=== PATIENT | male | born 1940 ===

== ENCOUNTER 2024-01-11 12:50 | Outpatient (POV) | payer MEDICARE, SELFPAY ==
--- NOTE | 2024-01-11 13:06 | EXP.PAIN.OV ---
HPI Data of Consult Patient: new to practice Consult date: 01/11/24 Requesting Physician: Sherry James APRN Consult Narrative Reason for consult: Back pain History of present illness: Mr. Roblero is a 83 year old male presents today as a new patient. He is a referral from the [place] office location. Today he rates his pain a 6 out of 10. Patient states he continues to have chronic pain in his low back as well as neuropathy in his feet. Patient states this has been going on for years and progressively worsening. Patient does have a history of stage IV prostate cancer. Patient did have treatment with [employer] and states he does have 2 additional treatments still left. Patient did previously have lumbar medial branch blocks and RFA with minimal relief. He was tried on Compounded cream however states he really did not notice significant improvement. Patient is also having to go through a lot with their adult daughter who is a nurse and had sudden illness requiring brain surgery. Patient is currently being prescribed oxycodone 15 mg 3 times a day from our office and gabapentin from an outside provider. He does use a cane to help with ambulation. His Bebeto has been reviewed and is appropriate. CC: Sherry James APRN [facility] Disclaimer: The information contained in this section may have been updated after the patient was seen, as this information can be updated by other users. Medical History (Updated 01/11/24 @ 13:36 by Sherry James APRN) GERD (gastroesophageal reflux disease) GERD (gastroesophageal reflux disease) Hypothyroid Depression Lumbar degenerative disc disease Lumbar spinal stenosis Dementia Diabetes BPH (benign prostatic hyperplasia) HLD (hyperlipidemia) HTN (hypertension) Family History (Updated 01/11/24 @ 13:20 by Betsy Nieves RN) Other No significant family history Social History Smoking Status: Unknown if ever smoked alcohol intake: never current occupational status: retired Travel in the last 8 weeks: None Review of Systems Review of Systems Review of systems:: pertinent systems reviewed and negative unless documented below Review of systems (narrative): Review of Systems: General: No recent weight changes, no fever, no sleep disturbances Respiratory: No cough, no shortness of air, no recurring pulmonary infections Cardiovascular/peripheral vascular: No chest pain, no palpitations, no edema, no shortness of breath Gastrointestinal: No new onset incontinence, normal bowel movements reported Genitourinary: No new onset incontinence Musculoskeletal: Low back pain Psychiatric: [Normal mood/affect] Neurological: [Denies weakness in extremities], [denies balance issues] Meds Home Medications and Allergies Home Medications Medication Instructions Recorded Confirmed Type amlodipine 10 mg tablet 10 mg PO DAILY 01/11/24 01/11/24 History donepezil 5 mg disintegrating 5 mg PO DAILY 01/11/24 01/11/24 History tablet escitalopram oxalate 10 mg tablet 10 mg PO DAILY 01/11/24 01/11/24 History gabapentin 600 mg tablet 600 mg PO TID 01/11/24 01/11/24 History glyburide 5 mg tablet 5 mg PO DAILY 01/11/24 01/11/24 History hydrochlorothiazide 25 mg tablet 25 mg PO DAILY 01/11/24 01/11/24 History insulin glargine 100 unit/mL 40 unit SQ HS 01/11/24 01/11/24 History subcutaneous solution (Lantus U-100 Insulin) levothyroxine 100 mcg tablet 100 mcg PO DAILY 01/11/24 01/11/24 History lisinopril 40 mg tablet 40 mg PO DAILY 01/11/24 01/11/24 History memantine 10 mg tablet 10 mg PO DAILY 01/11/24 01/11/24 History metoprolol tartrate 25 mg tablet 25 mg PO DAILY 01/11/24 01/11/24 History oxycodone 15 mg tablet 15 mg PO TID 01/11/24 01/11/24 History pantoprazole 40 mg tablet,delayed 40 mg PO DAILY 01/11/24 01/11/24 History release simvastatin 40 mg tablet 40 mg PO DAILY 01/11/24 01/11/24 History tamsulosin 0.4 mg capsule 0.4 mg PO DAILY 01/11/24 01/11/24 History New Prescriptions to Start Prescriptions: Allergies Allergy/AdvReac Type Severity Reaction Status Date / Time ciprofloxacin [From Cipro] AdvReac Rash Verified 01/11/24 13:12 latex AdvReac Rash Verified 01/11/24 13:12 Objective Narrative: Physical Exam: General: Alert and oriented x3, no acute distress, pleasant and cooperative Lungs: Respirations even and unlabored, symmetrical chest expansion Eyes: PERRL Musculoskeletal: Flexion and extension of lumbar [spine] somewhat guarded secondary to pain, [antalgic gait noted] Neurological: Speech clear, no gross sensory deficit Assessment and Plan *Assessment and plan (1) Chronic pain syndrome: Status: Acute Category: Medical Code(s): G89.4 - Chronic pain syndrome (2) Low back pain: Status: Acute Qualifiers: Chronicity: chronic Back pain laterality: midline Sciatica presence: without sciatica Qualified Code(s): M54.50 - Low back pain, unspecified; G89.29 - Other chronic pain Category: Medical Code(s): M54.50 - Low back pain, unspecified Plan Patient continues to experience significant pain in his low back with occasional pain into his groin and testicle pain. We will refill the patient's oxycodone 15 mg 3 times a day and provide a 1 month supply of this medication. Patient will return to clinic in 1 month via telehealth visit due to his ongoing health issues with prostate cancer and daughters health. Risks and benefits of the medication have been explained in detail to the patient. The patient does understand the risk of dependence on the medication when given over a prolonged period. Patient has been advised of risks of oversedation with the prescribed medication. Narcan has been offered to the paitent in the event of oversedation. Patient has been advised that a family member should also be educated regarding administration of Narcan. The patient has been advised to consult with his/her primary care provider and pharmacist regarding drug-drug interaction of medications currently prescribed. Patient has been prescribed a controlled substance after being counseled on the medication, medication safety, and possible side effects. Opioid contract was reviewed and signed by the patient, and that they have agreed to all of the terms set forth by our compliance program. Patient has been instructed to contact the clinic with any concerns before the next appointment. Dr. Gordillo has reviewed this note and agrees with this plan of care. This note was dictated using voice recognition software and make contain errors or omissions.
[2024-01-11 13:11] VITALS: BP 132/68; PULSE 60; RESP 20; O2SAT 98; BMI 37.1
[2024-01-11 15:26] LABS: Amphetamine/Metha Screen,Urine Negative ng/ml (<1000); Benzodiazepines Screen,Urine Negative ng/ml (<200)
[2024-01-11 15:27] LABS: Barbiturates Screen,Urine Positive ng/ml (<200); Cannabinoid Screen,Urine Negative ng/ml (<50)
[2024-01-11 15:28] LABS: Cocaine Screen,Urine Negative ng/ml (<300)
[2024-01-11 15:29] LABS: Methadone Screen,Urine Negative ng/ml (<300); Opiate Screen,Urine Negative ng/ml (<300)
[2024-01-11 15:30] LABS: Phencyclidine Screen,Urine Negative ng/ml (<25)
[2024-01-14 11:24] LABS: Barbiturates Positive (.); Opiates Negative (Cutoff=100); Oxycodone (GC/MS) 106 ng/mL (Cutoff=100); Oxymorphone (GC/MS) 304 ng/mL (Cutoff=100)
[2024-01-16 18:10] LABS: Opiates Negative ng/mL (Cutoff=100)
== END 2024-01-11 23:59 | disposition home or self-care (01) ==
PROVIDERS: Visit Provider Nurse Practitioner Family
DX: G89.4 Chronic pain syndrome (principal); M54.50 Low back pain, unspecified; N50.819 Testicular pain, unspecified
CPT/HCPCS: 80307; 80345; 80361; 80365; 99202; G0463; G0480

== ENCOUNTER 2024-02-11 10:27 | Outpatient (POV) | payer MEDICARE, SELFPAY ==
--- NOTE | 2024-02-11 10:40 | EXP.PAIN.SOA ---
[facility] Pain Management SOAP Note Subjective:: Patient is a pleasant 83-year-old male who presents today for telehealth visit and medication refill. This visit is occurring at the patient's home and he has given consent for this audio visit. Today he rates his pain a 6 out of 10. Patient does state that he had a small fall earlier this morning however he did not have any significant injury. Patient states that this just happens from time to time. Patient does state that he does not have any additional updates on his stage IV prostate cancer. He is scheduled to go in in February and May for additional therapy. He does state at our last visit where his daughter is undergoing current illness but they do have updated imaging coming up and they are hoping to find out more information at that time. Patient is currently managed with oxycodone 15 mg 3 times a day from our office and gabapentin from an outside provider. He denies any side effects from this medication. His Bebeto has been reviewed and is appropriate. Review of Systems: General: No recent weight changes, no fever, no sleep disturbances Respiratory: No cough, no shortness of air, no recurring pulmonary infections Cardiovascular/peripheral vascular: No chest pain, no palpitations, no edema, no shortness of breath Gastrointestinal: No new onset incontinence, normal bowel movements reported Genitourinary: No new onset incontinence Musculoskeletal: Low back pain Psychiatric: [Normal mood/affect] Neurological: [Denies weakness in extremities], [denies balance issues] Objective:: General: Alert and oriented x3, pleasant and cooperative Lungs: Patient is able to say complete sentences without dyspnea Neurological: Speech clear Assessment:: Chronic pain syndrome, low back pain Plan:: We will refill the patient's oxycodone 15 mg 3 times a day and provide a to clinic in 1 month for reevaluation of symptoms and plan of care. Patient will return to clinic in 1 month for reevaluation of symptoms and plan of care. Risks and benefits of the medication have been explained in detail to the patient. The patient does understand the risk of dependence on the medication when given over a prolonged period. Patient has been advised of risks of oversedation with the prescribed medication. Narcan has been offered to the paitent in the event of oversedation. Patient has been advised that a family member should also be educated regarding administration of Narcan. The patient has been advised to consult with his/her primary care provider and pharmacist regarding drug-drug interaction of medications currently prescribed. Patient has been prescribed a controlled substance after being counseled on the medication, medication safety, and possible side effects. Opioid contract was reviewed and signed by the patient, and that they have agreed to all of the terms set forth by our compliance program. Patient has been instructed to contact the clinic with any concerns before the next appointment. Dr. Gordillo has reviewed this note and agrees with this plan of care. This note was dictated using voice recognition software and make contain errors or omissions. This visit did occur from [id number]. [facility] Disclaimer: The information contained in this section may have been updated after the patient was seen, as this information can be updated by other users. Medical History (Updated 01/11/24 @ 13:36 by Sherry James APRN) GERD (gastroesophageal reflux disease) GERD (gastroesophageal reflux disease) Hypothyroid Depression Lumbar degenerative disc disease Lumbar spinal stenosis Dementia Diabetes BPH (benign prostatic hyperplasia) HLD (hyperlipidemia) HTN (hypertension) Family History (Updated 01/11/24 @ 13:20 by Betsy Nieves RN) Other No significant family history Social History (Updated 01/11/24 @ 13:37 by Sherry James APRN) Smoking Status: Unknown if ever smoked alcohol intake: never current occupational status: retired Travel in the last 8 weeks: None
== END 2024-02-11 23:59 | disposition home or self-care (01) ==
PROVIDERS: Visit Provider Nurse Practitioner Family
DX: G89.4 Chronic pain syndrome (principal); M54.50 Low back pain, unspecified; C61 Malignant neoplasm of prostate
CPT/HCPCS: 99441; G2012